=== PATIENT | female | born 1985 | race Caucasian/White ===

== ENCOUNTER 2021-08-28 13:02 | Emergency (ER) | payer OTHER ==
[2021-08-28 13:08] VITALS: BP 116/77; PULSE 88; RESP 16; TEMP 98.4
[2021-08-28] MEDS ORDERED: ONDANSETRON 4 MG/2 ML VIAL IVP STA (13:58)
[2021-08-28] MEDS ORDERED: SODIUM CHLORIDE 0.9% 1,000 ML IV STA (13:58)
[2021-08-28] MEDS ORDERED: KETOROLAC 15 MG/ML 1 ML VIAL IVP STA (13:58)
[2021-08-28 14:33] LABS: Basophils % (A) 1 %; Eosinophils # (A) 0.1 k/uL (0-0.7); Eosinophils % (A) 1 %; HCT 38.5 % (34.0-46.0); HGB 12.2 gm/dL (11.4-16.0); Lymphocytes # (A) 1.3 k/uL (1.0-4.8); Lymphocytes % (A) 23 %; MCH 28.2 pg (25.0-35.0); MCHC 31.8 g/dL (31.0-37.0); MCV 88.7 fL (80.0-100.0); Mean Platelet Volume 7.2; Monocytes # (A) 0.4 k/uL (0-1.0); Monocytes % (A) 7 %; Neutrophils # (A) 3.7 k/uL (1.3-7.7); Neutrophils % (A) 66 %; Platelet Count 200 k/uL (150-450); RBC 4.34 m/uL (3.80-5.40); RDW 14.1 % (11.5-15.5); WBC 5.5 k/uL (3.8-10.6)
[2021-08-28 14:37] LABS: Appearance,Urine Clear (Clear); Bilirubin,Urine Negative (Negative); Blood,Urine Negative (Negative); Color,Urine Light Yellow; Glucose,Urine (UA) Negative (Negative); Ketones,Urine Negative (Negative); Leukocyte Esterase,Urine Moderate (Negative); Mucus,Urine Rare /hpf; Nitrite,Urine Negative (Negative); PH, Urine 5.5 (5.0-8.0); Protein,Urine Negative (Negative); RBC,Urine 1 /hpf (0-5); Specific Gravity,Urine 1.013 (1.001-1.035); Squamous Epithelial Cell,Urine 2 /hpf (0-4); Urobilinogen,Urine <2.0 mg/dL (<2.0); WBC,Urine 3 /hpf (0-5)
[2021-08-28 14:49] LABS: ALT 13 U/L (4-34); AST 25 U/L (14-36); African American GFR (CKD) >90 (>60 ml/min/1.73 sqM); Albumin 3.9 g/dL (3.5-5.0); Alkaline Phosphatase 83 U/L (38-126); Anion Gap 8 mmol/L; Blood Urea Nitrogen 12 mg/dL (7-17); Calcium 9.1 mg/dL (8.4-10.2); Carbon Dioxide 25 mmol/L (22-30); Chloride 105 mmol/L (98-107); Glucose 80 mg/dL (74-99); Lipase 113 U/L (23-300); Non-African American GFR(CKD) >90 (>60 ml/min/1.73 sqM); Potassium 4.5 mmol/L (3.5-5.1); Sodium 138 mmol/L (137-145); Total Bilirubin 0.4 mg/dL (0.2-1.3); Total Protein 7.4 g/dL (6.3-8.2)
--- NOTE | 2021-08-28 14:55 | ED ---
General Adult HPI - General Chief complaint: Urogenital Stated complaint: Female Time Seen by Provider: 08/28/21 13:49 Source: patient Mode of arrival: ambulatory Limitations: no limitations - History of Present Illness Initial comments: 36 year-old female patient presents to the emergency department for evaluation of pelvic pain and vaginal bleeding. States that symptoms started yesterday. States she had her period two weeks ago. States she never has bleeding between periods. States that she has had constant pain to the lower abdomen that radiate s to the back. States it does wax and wane but never goes away. Denies any foul smelling discharge, burning, or itching. Patient states she does have pain in her abdomen and burning with urination. States she is in a monogamous relationship and has low concern for STI. Denies fever or chills. Denies history of abdominal surgery. Does have history of ovarian cyst but these symptoms are not consistent with her previous episodes. Last gynecological exam was 01/16. History of abnormal cervical cells r/t HPV several years ago, no further abnormal paps. Patient denies any recent rash, cough, shortness of breath, chest pain, diarrhea, constipation, back pain, numbness, tingling, dizziness, weakness, headache, visual changes, or any other complaints. - Related Data Previous Rx's Medication Instructions Recorded metroNIDAZOLE [Flagyl] 500 mg PO BID #14 tab 08/28/21 Allergies Allergy/AdvReac Type Severity Reaction Status Date / Time No Known Allergies Allergy Verified 08/28/21 13:04 Review of Systems ROS Statement: Those systems with pertinent positive or pertinent negative responses have been documented in the HPI. ROS Other: All systems not noted in ROS Statement are negative. Past Medical History Past Medical History: No Reported History History of Any Multi-Drug Resistant Organisms: None Reported Past Surgical History: Back Surgery Past Psychological History: Anxiety Smoking Status: Never smoker Past Alcohol Use History: Occasional Past Drug Use History: None Reported General Exam Limitations: no limitations General appearance: alert, in no apparent distress, other (This is a well- developed, well-nourished adult female patient in no acute distress. Vital signs upon presentation are temperature 98.4F, pulse 88, respirations 16, blood pressure 116/77, pulse ox 97% on room air.) Eye exam: Present: normal appearance, PERRL, EOMI. Absent: scleral icterus, conjunctival injection, periorbital swelling ENT exam: Present: normal exam, normal oropharynx, mucous membranes moist Respiratory exam: Present: normal lung sounds bilaterally. Absent: respiratory distress, wheezes, rales, rhonchi, stridor Cardiovascular Exam: Present: regular rate, normal rhythm, normal heart sounds. Absent: systolic murmur, diastolic murmur, rubs, gallop, clicks GI/Abdominal exam: Present: soft, tenderness (Suprapubic), normal bowel sounds. Absent: distended, guarding, rebound, rigid Neurological exam: Present: alert, oriented X3, CN II-XII intact Psychiatric exam: Present: normal affect, normal mood Skin exam: Present: warm, dry, intact, normal color. Absent: rash Course Vital Signs 08/28/21 13:04 Temperature 98.4 F Pulse Rate 88 Respiratory 16 Rate Blood Pressure 116/77 O2 Sat by Pulse 97 Oximetry Medical Decision Making - Medical Decision Making 36-year-old female patient presents to the emergency department today for evaluation of pelvic pain, dysuria, and midcycle bleeding. She has had tubal ligation no chance of . Physical examination did reveal suprapubic tenderness. No CVA tenderness. She is afebrile normal vital signs. Labs rev iewed and were unremarkable. Did perform pelvic examination which did reveal a thin grayish discharge. Cultures were obtained. She did test positive for Trichomonas. She was given IM Rocephin, dose of azithromycin, will be started on Flagyl for the next week. She is instructed to inform her partners and has been treated as well. No intercourse for 2 weeks. She is instructed to follow- up with her press operator automatic for further evaluation as soon as possible. Return parameters were discussed in detail. She verbalizes understanding and agrees with this plan. My attending is Dr. Gerber. - Lab Data Result diagrams: 08/28/21 14:12 08/28/21 14:12 Lab Results 08/28/21 08/28/21 08/28/21 Range/Units 14:12 14:12 14:12 WBC 5.5 (3.8-10.6) k/uL RBC 4.34 (3.80-5.40) m/uL Hgb 12.2 (11.4-16.0) gm/dL Hct 38.5 (34.0-46.0) % MCV 88.7 (80.0-100.0) fL MCH 28.2 (25.0-35.0) pg MCHC 31.8 (31.0-37.0) g/dL RDW 14.1 (11.5-15.5) % Plt Count 200 (150-450) k/uL MPV 7.2 Neutrophils % 66 % Lymphocytes % 23 % Monocytes % 7 % Eosinophils % 1 % Basophils % 1 % Neutrophils # 3.7 (1.3-7.7) k/uL Lymphocytes # 1.3 (1.0-4.8) k/uL Monocytes # 0.4 (0-1.0) k/uL Eosinophils # 0.1 (0-0.7) k/uL Basophils # 0.0 (0-0.2) k/uL Sodium (137-145) mmol/L Potassium (3.5-5.1) mmol/L Chloride (98-107) mmol/L Carbon Dioxide (22-30) mmol/L Anion Gap mmol/L BUN (7-17) mg/dL Creatinine (0.52-1.04) mg/dL Est GFR (CKD-EPI)AfAm (>60 ml/min/1.73 sqM) Est GFR (CKD-EPI)NonAf (>60 ml/min/1.73 sqM) Glucose (74-99) mg/dL Plasma Lactic Acid John (0.7-2.0) mmol/L Calcium (8.4-10.2) mg/dL Total Bilirubin (0.2-1.3) mg/dL AST (14-36) U/L ALT (4-34) U/L Alkaline Phosphatase (38-126) U/L Total Protein (6.3-8.2) g/dL Albumin (3.5-5.0) g/dL Lipase (23-300) U/L Urine Color Light Yellow Urine Appearance Clear (Clear) Urine pH 5.5 (5.0-8.0) Ur Specific [place] 1.013 (1.001-1.035) Urine Protein Negative (Negative) Urine Glucose (UA) Negative (Negative) Urine Ketones Negative (Negative) Urine Blood Negative (Negative) Urine Nitrite Negative (Negative) Urine Bilirubin Negative (Negative) Urine Urobilinogen <2.0 (<2.0) mg/dL Ur Leukocyte Esterase Moderate H (Negative) Urine RBC 1 (0-5) /hpf Urine WBC 3 (0-5) /hpf Ur Squamous Epith Cells 2 (0-4) /hpf Urine Mucus Rare H (None) /hpf Urine HCG, Qual Not Detected (Not Detectd) Trichomonas Ag (Rapid) (Negative) 08/28/21 08/28/21 08/28/21 Range/Units 14:12 14:12 15:36 WBC (3.8-10.6) k/uL RBC (3.80-5.40) m/uL Hgb (11.4-16.0) gm/dL Hct (34.0-46.0) % MCV (80.0-100.0) fL MCH (25.0-35.0) pg MCHC (31.0-37.0) g/dL RDW (11.5-15.5) % Plt Count (150-450) k/uL MPV Neutrophils % % Lymphocytes % % Monocytes % % Eosinophils % % Basophils % % Neutrophils # (1.3-7.7) k/uL Lymphocytes # (1.0-4.8) k/uL Monocytes # (0-1.0) k/uL Eosinophils # (0-0.7) k/uL Basophils # (0-0.2) k/uL Sodium 138 (137-145) mmol/L Potassium 4.5 (3.5-5.1) mmol/L Chloride 105 (98-107) mmol/L Carbon Dioxide 25 (22-30) mmol/L Anion Gap 8 mmol/L BUN 12 (7-17) mg/dL Creatinine 0.84 (0.52-1.04) mg/dL Est GFR (CKD-EPI)AfAm >90 (>60 ml/min/1.73 sqM) Est GFR (CKD-EPI)NonAf >90 (>60 ml/min/1.73 sqM) Glucose 80 (74-99) mg/dL Plasma Lactic Acid John 0.7 (0.7-2.0) mmol/L Calcium 9.1 (8.4-10.2) mg/dL Total Bilirubin 0.4 (0.2-1.3) mg/dL AST 25 (14-36) U/L ALT 13 (4-34) U/L Alkaline Phosphatase 83 (38-126) U/L Total Protein 7.4 (6.3-8.2) g/dL Albumin 3.9 (3.5-5.0) g/dL Lipase 113 (23-300) U/L Urine Color Urine Appearance (Clear) Urine pH (5.0-8.0) Ur Specific [place] (1.001-1.035) Urine Protein (Negative) Urine Glucose (UA) (Negative) Urine Ketones (Negative) Urine Blood (Negative) Urine Nitrite (Negative) Urine Bilirubin (Negative) Urine Urobilinogen (<2.0) mg/dL Ur Leukocyte Esterase (Negative) Urine RBC (0-5) /hpf Urine WBC (0-5) /hpf Ur Squamous Epith Cells (0-4) /hpf Urine Mucus (None) /hpf Urine HCG, Qual (Not Detectd) Trichomonas Ag (Rapid) Positive H (Negative) - Radiology Data Radiology results: report reviewed, image reviewed Ultrasound of the pelvis is obtained. Report is reviewed in its entirety. Impression by Dr. Gómez shows no adnexal mass or free fluid. No evidence of ovarian torsion. Disposition Clinical Impression: Infection due to trichomonas, Pelvic pain Disposition: HOME SELF-CARE Condition: Good Instructions (If sedation given, give patient instructions): Trichomoniasis (ED), Pelvic Pain in Women (ED) Additional Instructions: Complete antibiotic prescription in full. No sexual intercourse for 2 weeks. Your partner must be treated. Follow-up with her press operator automatic for further evaluation as needed. Return for any new, worsening, or concerning symptoms. Prescriptions: metroNIDAZOLE [Flagyl] 500 mg PO BID #14 tab Is patient prescribed a controlled substance at d/c from ED?: No Referrals: None,Stated [Primary Care Provider] - 1-2 days Time of Disposition: 16:10
--- NOTE | 2021-08-28 15:15 | US ---
EXAMINATION TYPE: US transvaginal DATE OF EXAM: 08/28/2021 COMPARISON: NONE CLINICAL HISTORY: Pelvic pain; mid-cycle bleeding. Generalized pelvic pain, light vaginal bleeding TECHNIQUE: Transvaginal (TV). Transvaginal sonographic images of the pelvis were acquired. Date of LMP: 08/10/2021 EXAM MEASUREMENTS: Uterus: 7.3 x 3.8 x 4.6 cm Endometrial Stripe: 0.7 cm Right Ovary: 3.1 x 2.3 x 2.0 cm Left Ovary: 2.9 x 2.4 x 2.5 cm 1. Uterus: Anteverted Heterogeneous with small calc within body of uterus and Nabothian cysts in c ervix 2. Endometrium: wnl 3. Right Ovary: wnl 4. Left Ovary: wnl Spectral, color and waveform doppler imaging shows good arterial and venous flow within the ovaries ; there is no evidence for ovarian torsion. 5. Bilateral Adnexa: wnl 6. Posterior cul-de-sac: wnl IMPRESSION: No adnexal mass or free fluid. No evidence of ovarian torsion.
[2021-08-28] MEDS ORDERED: cefTRIAXone 1,000 MG VIAL (IM USE) IM STA (16:05)
[2021-08-28] MEDS ORDERED: AZITHROMYCIN 500 MG TAB PO STA (16:05)
[2021-08-28] MEDS ORDERED: metroNIDAZOLE 500 MG TAB PO STA (16:05)
[2021-08-30 13:05] LABS: C. trachomatis,PCR Negative (Neg,Equiv); Chlamydia trachomatis Source Vagina; N. gonorrhoeae,PCR Negative (Neg,Equiv); Neisseria Source Vagina
== END 2021-08-28 16:30 | disposition home or self-care (01) ==
LOC: EC 13:02
DX: A59.8 Trichomoniasis of other sites (principal); F41.9 Anxiety disorder, unspecified; Z98.51 Tubal ligation status
CPT/HCPCS: 99284; 96374; 96375; 96361; 96372; 36415; 80053; 83605; 83690; 85025; 81001; 81025; 87808; 87491; 87591; 87070; 93975; 76830; J2405; J0696; J1885

== ENCOUNTER 2021-11-06 20:38 | Emergency (ER) | payer OTHER ==
[2021-11-06 21:09] VITALS: RESP 20
[2021-11-06] MEDS ORDERED: LIDOCAINE 1% INJ 10MG/ML (20 ML MDV) SQ ONE (22:19)
[2021-11-06] MEDS ORDERED: BACITRACIN OINT 1 EACH PACKET TOPICAL ONE (22:19)
--- NOTE | 2021-11-06 22:39 | XR ---
EXAMINATION TYPE: XR hand complete RT DATE OF EXAM: 11/06/2021 COMPARISON: NONE HISTORY: Laceration TECHNIQUE: 3 views FINDINGS: Metacarpals are intact. I see no fracture nor dislocation. The joint spaces are normal. IMPRESSION: Negative right hand exam. No fracture.
[2021-11-06] MEDS ORDERED: DIPH,PERTUS(ACELL)TETVAC-LF 0.5 ML VIAL IM ONE (23:13)
--- NOTE | 2021-11-06 23:17 | ED ---
General Adult HPI - General Chief complaint: Wound/Laceration Stated complaint: Hand injury Time Seen by Provider: 11/06/21 22:01 Source: patient, RN notes reviewed Mode of arrival: ambulatory Limitations: no limitations - History of Present Illness Initial comments: 35-year-old female presents to emergency department for evaluation of laceration to the right hand. Patient states injury occurred approximately 1 hour prior to arrival when she was using a clean kitchen knife to cut through fabric. Patient complains of mild discomfort, but denies any loss of sensation or range of motion. Patient states she attempted to clean the wound prior to arrival. Denies any further injury. Last Tdap unknown. - Related Data Home Medications Medication Instructions Recorded Confirmed DULoxetine HCL [Cymbalta] 30 mg PO DIRECTED 11/06/21 11/06/21 EPINEPHrine (Auto Inject) [Epipen] 0.3 mg IM ONCE PRN 11/06/21 11/06/21 Allergies Allergy/AdvReac Type Severity Reaction Status Date / Time Mushroom Allergy Anaphylaxis Verified 11/06/21 23:20 peanut Allergy Anaphylaxis Verified 11/06/21 23:20 gluten AdvReac Nausea & Verified 11/06/21 23:20 Vomiting & Diarrhea Review of Systems ROS Statement: Those systems with pertinent positive or pertinent negative responses have been documented in the HPI. ROS Other: All systems not noted in ROS Statement are negative. Past Medical History Past Medical History: No Reported History History of Any Multi-Drug Resistant Organisms: None Reported Past Surgical History: Back Surgery Past Psychological History: Anxiety Smoking Status: Never smoker Past Alcohol Use History: Occasional Past Drug Use History: None Reported General Exam Limitations: no limitations (Well-developed, well-nourished female in no acute distress. Initial temperature 98.5, pulse 60, respirations 20, blood pressure 130/77, pulse ox 98% on room air.) General appearance: alert, in no apparent distress Respiratory exam: Present: normal lung sounds bilaterally. Absent: respiratory distress, wheezes, rales, rhonchi, stridor Cardiovascular Exam: Present: regular rate, normal rhythm, normal heart sounds. Absent: systolic murmur, diastolic murmur, rubs, gallop, clicks GI/Abdominal exam: Present: soft, normal bowel sounds. Absent: distended, tend erness, guarding, rebound, rigid Right Hand Wrist exam: Present: normal inspection, full ROM, tenderness, laceration (2 cm laceration to the web spacing between the first and second digits on the right hand.). Absent: swelling Neuro motor exam: Present: thumb opposition intact, thumb IP flexion intact, thumb adduction intact, fingers 2-5 abduction intact Vascular: Present: normal capillary refill, radial pulse, ulnar pulse. Absent: vascular compromise, Pallo Neurological exam: Present: alert, oriented X3, CN II-XII intact Psychiatric exam: Present: normal affect, normal mood Skin exam: Present: warm, dry, intact, normal color. Absent: rash Course Vital Signs 11/06/21 11/06/21 21:07 23:55 Temperature 98.5 F 98.2 F Pulse Rate 68 62 Respiratory 20 20 Rate Blood Pressure 130/77 130/70 O2 Sat by Pulse 98 98 Oximetry Procedures - Laceration Laceration #1 Consent Obtained: verbal consent Indication: laceration Site: hand (Right) Size (cm): 2 Description: linear Depth: simple, single layer Anesthetic Used: lidocaine 1% Anesthesia Technique: local infiltration Amount (mls): 4 Pre-repair: wound explored, irrigated extensively Size of Sutures: 5-0 Number of Sutures: 3 Technique: simple, interrupted Patient Tolerated Procedure: well, no complications Additional Comments: Wound care reviewed with patient. Bacitracin dressing applied. Instructed to have sutures removed in 7-10 days. Medical Decision Making - Medical Decision Making 36-year-old female presents to the emergency department for evaluation of laceration to the right hand. Upon exam, patient is well-appearing and in no acute distress. 2 cm linear laceration noted to the web spacing between the first and second digits of the right hand. Sensation and range of motion intact distal to injury. X-ray of the right hand was obtained showing no concerning findings. Wound cleansed and anesthetized; 3 simple interrupted sutures were placed without complication. Bacitracin dressing was applied. Wound care was reviewed with patient. She is instructed to follow up with her PCP for wound recheck in the next 2 days. Sutures to be removed in 7-10 days. Return parameters were discussed in detail. Patient verbalizes understanding and agrees with this plan. This patient's care was discussed with my attending Dr. Paredes. - Radiology Data Radiology results: report reviewed, image reviewed X-ray of the right hand was obtained. Report was reviewed in its entirety. Impression per Dr. Pinto is negative right hand exam. No fracture. Disposition Clinical Impression: Laceration of right hand Disposition: HOME SELF-CARE Condition: Stable Instructions (If sedation given, give patient instructions): Care For Your Stitches (ED), Laceration (ED) Additional Instructions: May take Tylenol or Motrin as needed for pain. Keep wound clean and dry. Sutures to be removed in 7-10 days. This may be done here at the ER, at urgent care, or at PCP. Follow-up with her primary care provider for recheck. Turned to the emergency department with any new, worsening, or concerning symptoms. Is patient prescribed a controlled substance at d/c from ED?: No Referrals: None,Stated [Primary Care Provider] - 1-2 days Time of Disposition: 23:16
[2021-11-06 23:59] VITALS: BP 130/70; PULSE 62; TEMP 98.2
== END 2021-11-06 23:55 | disposition home or self-care (01) ==
LOC: EC 20:38
DX: S61.411A Laceration without foreign body of right hand, initial encounter (principal); F41.9 Anxiety disorder, unspecified; Z79.899 Other long term (current) drug therapy; W26.0XXA Contact with knife, initial encounter
CPT/HCPCS: 73130; 90715; 90471; 12001; 99283; J2001

== ENCOUNTER → 2022-04-27 | Outpatient (CLI) | payer OTHER ==
--- NOTE | 2022-04-27 10:18 | USB ---
Reason for Exam: Clinical finding. Technique: Method: Whole Breast Handheld. Findings: The whole breast of the left breast, the axilla of the left breast and the retroareolar of the left breast were scanned. Whole left breast ultrasound including evaluation of subareolar and axillary regions shows no worrisome solid or cystic mass or abnormal fluid collection on images saved. Overall Assessment: Negative, BI-RAD 1 Management: Clinical Management of the left breast. Managed patient's symptoms of pain on clinical basis. Return to routine follow-up at 42 years of age. Electronically signed and approved by: Alex Rivera M.D.
--- NOTE | 2022-04-27 22:58 | BD ---
EXAMINATION TYPE: Axial Bone Density DATE OF EXAM: 04/27/2022 COMPARISON: NONE CLINICAL HISTORY: 36 years year old Female. ICD-10 CODE: N64.4 MASTODYNIA, K90.0 CELIAC DISEASE : NO Height: 65.5 IN Weight: 181 LBS FRAX RISK QUESTIONS: History of Fracture in Adulthood: LT ANKLE AGE 27 Secondary Osteoporosis: 4. Malnutrition: YES CELIAC DISEASE RISK FACTORS HISTORY OF: Surgery to Spine: L-SPINE SURGERY AGE 35 Active: YES MEDICATIONS: Additional Medications: CYMBALTA, EXAM MEASUREMENTS: Bone mineral densitometry was performed using the [employer] System. L SPINE SURGERY AGE 35 Bone mineral density about the R hip (g/cm2): 0.826 Bone mineral density about the L hip (g/cm2): 0.806 T Score values are as follows: -----R Neck: -1.5 -----L Neck: -1.7 -----R Total: -1.2 -----L Total: -1.4 Bone mineral density BASELINE Bone mineral density about the R Wrist (g/cm2): 0.630 T Score values are as follows: -----Dist. R+U: -1.6 -----Prox. R+U: -0.2 -----Radius total: -0.7 Bone mineral density BASELINE FRAX%s: PT IS ONLY 36 IMPRESSION: Osteopenia (T Score between -2.5 and -1). There is slightly increased risk of fracture and the patient may be considered for treatment. Re-Screen 2-5 years. NOTE: T-SCORE=SD OF THE YOUNG ADULT MEAN.
== END | disposition home or self-care (01) ==
LOC: RADUSWWP 09:23
PROVIDERS: ATTEND Family Medicine
DX: M85.89 Other specified disorders of bone density and structure, multiple sites (principal); R92.8 Other abnormal and inconclusive findings on diagnostic imaging of breast
CPT/HCPCS: 77080

== ENCOUNTER → 2023-03-21 | Outpatient (CLI) | payer BC, OTHER ==
--- NOTE | 2023-03-22 05:42 | MR ---
EXAMINATION TYPE: MR shoulder LT wo con DATE OF EXAM: 03/21/2023 COMPARISON: Outside left shoulder x-ray March 09, 2023 HISTORY: Left shoulder pain, limited movement for 3 months. TECHNIQUE: Multiplanar, multisequence imaging of the left shoulder is performed without contrast. FINDINGS: Rotator Cuff: Distal supraspinatus and infraspinatus tendons are intact with some mild increased sign al and adjacent fluid along the bursal surface. Rotator cuff muscular bulk is preserved. Acromioclavicular Joint: Moderate to severe narrowing with mild capsular hypertrophy. Distal acromion morphology is unremarkable. Glenohumeral Joint: No significant effusion or spurring. Labrum: The labrum appears grossly intact given limitation of non-arthrogram study. Biceps Tendon: The long head of biceps is in normal location within bicipital groove. Bone marrow signal: No focal abnormal marrow signal is appreciated. Other: No additional significant abnormality is appreciated. IMPRESSION: 1. Mild tendinosis of the distal rotator cuff tendons. No significant rotator cuff or labral tear.
== END | disposition home or self-care (01) ==
LOC: RADMRIMAIN 20:15
PROVIDERS: ATTEND Orthopaedic Surgery
DX: M67.814 Other specified disorders of tendon, left shoulder (principal); M25.512 Pain in left shoulder

== ENCOUNTER 2023-04-21 15:33 | Emergency (ER) | payer BC, OTHER ==
--- NOTE | 2023-04-21 16:07 | ED ---
General Adult HPI - General Chief complaint: Abdominal Pain Stated complaint: pelvic pain Time Seen by Provider: 04/21/23 15:44 Source: patient, RN notes reviewed Mode of arrival: ambulatory Limitations: no limitations - History of Present Illness Initial comments: 37-year-old female presents emergency department chief complaint of suprapubic pain 4-5 days. She states she has a history of recurrent UTIs but does not typically get this pain with it. She states that she has urinary frequency and burning with urination. She admits to some nausea without vomiting. She denies fevers, chills. Denies diarrhea. Denies vaginal discharge, abnormal vaginal bleeding, itching. Patient states that she has one sexual partner and has no concerns for STDs. - Related Data Home Medications Medication Instructions Recorded Confirmed DULoxetine HCL [Cymbalta] 30 mg PO DIRECTED 11/06/21 11/06/21 EPINEPHrine (Auto Inject) [Epipen] 0.3 mg IM ONCE PRN 11/06/21 11/06/21 Allergies Allergy/AdvReac Type Severity Reaction Status Date / Time Mushroom Allergy Anaphylaxis Verified 04/21/23 15:38 peanut Allergy Anaphylaxis Verified 04/21/23 15:38 gluten AdvReac Nausea & Verified 04/21/23 15:38 Vomiting & Diarrhea Review of Systems ROS Statement: Those systems with pertinent positive or pertinent negative responses have been documented in the HPI. ROS Other: All systems not noted in ROS Statement are negative. Past Medical History Past Medical History: No Reported History History of Any Multi-Drug Resistant Organisms: None Reported Past Surgical History: Back Surgery Past Psychological History: Anxiety Smoking Status: Never smoker Past Alcohol Use History: Occasional Past Drug Use History: None Reported General Exam Limitations: no limitations General appearance: alert, in no apparent distress Head exam: Present: atraumatic, normocephalic, normal inspection Eye exam: Present: normal appearance, PERRL, EOMI. Absent: scleral icterus, conjunctival injection, periorbital swelling ENT exam: Present: normal exam, mucous membranes moist Neck exam: Present: normal inspection. Absent: tenderness, meningismus, lymphadenopathy Respiratory exam: Present: normal lung sounds bilaterally. Absent: respiratory distress, wheezes, rales, rhonchi, stridor Cardiovascular Exam: Present: regular rate, normal rhythm, normal heart sounds. Absent: systolic murmur, diastolic murmur, rubs, gallop, clicks GI/Abdominal exam: Present: soft, normal bowel sounds. Absent: distended, tenderness, guarding, rebound, rigid External exam: Present: normal external exam Speculum exam: Present: normal speculum exam By manual exam: Present: uterine tenderness. Absent: cervical motion tenderness, adnexal mass Extremities exam: Present: normal inspection, full ROM, normal capillary refill. Absent: tenderness, pedal edema, joint swelling, calf tenderness Back exam: Present: normal inspection Neurological exam: Present: alert, oriented X3 Psychiatric exam: Present: normal affect, normal mood Skin exam: Present: warm, dry, intact, normal color. Absent: rash Course Vital Signs 04/21/23 04/21/23 04/21/23 15:35 18:40 21:19 Temperature 97.9 F 97 F L Pulse Rate 92 68 73 Respiratory 16 16 18 Rate Blood Pressure 133/77 125/83 114/75 O2 Sat by Pulse 99 100 98 Oximetry Medical Decision Making - Medical Decision Making Was pt. sent in by a medical professional or institution (MARCELA Shah, CHEESE SPECIALIST, urgent care, hospital, or fci...) When possible be specific @ -No Did you speak to anyone other than the patient for history (EMS, parent, family, police, friend...)? What history was obtained from this source @ -No Did you review nursing and triage notes (agree or disagree)? Why? @ -I reviewed and agree with nursing and triage notes Were old charts reviewed (outside hosp., previous admission, EMS record, old EKG, old radiological studies, urgent care reports/EKG's, fci records)? Report findings @ -No old charts were reviewed Differential Diagnosis (chest pain, altered mental status, abdominal pain women, abdominal pain men, vaginal bleeding, weakness, fever, dyspnea, syncope, headache, dizziness, GI bleed, back pain, seizure, CVA, palpatations, mental health, musculoskeletal)? @ -Differential Abdominal Pain Women: Appendicitis, Cholecystitis, diverticulosis, ischemic bowel, pancreatitis, hepatitis, UTI, gastroenteritis, AAA, incarcerated hernia, bowel obstruction, constipation, inflammatory bowel, hepatitis, peptic ulcer disease, splenic infarction, perforated viscus, vulvitis, ovarian torsion, PID, kidney stone, placenta abruption, this is not meant to be an all-inclusive list EKG interpreted by me (3pts min.). @ -None X-rays interpreted by me (1pt min.). @ -None done CT interpreted by me (1pt min.). @ -None done U/S interpreted by me (1pt. min.). @ -Transvaginal ultrasound was obtained which showed possibility for adenomyosis or uterine fibroids What testing was considered but not performed or refused? (CT, X-rays, U/S, labs)? Why? @ -None What meds were considered but not given or refused? Why? @ -None Did you discuss the management of the patient with other professionals (professionals i.e. , PA, CHEESE SPECIALIST, lab, RT, psych nurse, social media manager, military lawyer, teacher, community relations officer, upper caser)? Give summary @ -No Was smoking cessation discussed for >3mins.? @ -No Was critical care preformed (if so, how long)? @ -No Were there social determinants of health that impacted care today? How? (Homelessness, low income, unemployed, alcoholism, drug addiction, tra nsportation, low edu. Level, literacy, decrease access to med. care, residential, rehab)? @ -No Was there de-escalation of care discussed even if they declined (Discuss DNR or withdrawal of care, Hospice)? DNR status @ -No What co-morbidities impacted this encounter? (DM, HTN, Smoking, COPD, CAD, Cancer, CVA, ARF, Chemo, Hep., AIDS, mental health diagnosis, sleep apnea, morbid obesity)? @ -None Was patient admitted / discharged? Hospital course, mention meds given and route, prescriptions, significant lab abnormalities, going to OR and other pertinent info. @ -Discharge. Patient presented to emergency department chief complaint of lower abdominal pain 5 days. Patient is well-appearing, afebrile. Transvaginal ultrasound was obtained which showed possibility for adenomyosis or fibroids. CBC and CMP were within normal limits, UA within normal limits. pelvic exam was performed which showed no vaginal discharge, patient declined swabs for STDs. Discussed with patient ththere is no acute findings and patient should follow-up with her primary care physician and trouble clerk. Patient discharged in stable condition. Case discussed my attending, Dr. Haynes ] Undiagnosed new problem with uncertain prognosis? @ -[N] rug Therapy requiring intensive monitoring for toxicity (Heparin, Nitro, Insulin, Cardizem)? @ -[N] ere any procedures done? @ -[N] iagnosis/symptom? @ -[Pelvic pain Acute, or Chronic, or Acute on Chronic? @ -Acute Uncomplicated (without systemic symptoms) or Complicated (systemic symptoms)? @ -uncomplicated ann effects of treatment? @ -[N] xacerbation, Progression, or Severe Exacerbation? @ -[N] oses a threat to life or bodily function? How? (Chest pain, USA, PR, pneumonia, PE, COPD, DKA, ARF, appy, cholecystitis, CVA, Diverticulitis, Homicidal, Suicidal, threat to staff... and all critical care pts) @ -[N] - Lab Data Result diagrams: 04/21/23 16:21 04/21/23 16:21 Lab Results 04/21/23 04/21/23 04/21/23 Range/Units 16:21 16:21 16:21 WBC 5.2 (3.8-10.6) k/uL RBC 4.29 (3.80-5.40) m/uL Hgb 12.7 (11.4-16.0) gm/dL Hct 38.8 (34.0-46.0) % MCV 90.3 (80.0-100.0) fL MCH 29.5 (25.0-35.0) pg MCHC 32.7 (31.0-37.0) g/dL RDW 13.3 (11.5-15.5) % Plt Count 181 (150-450) k/uL MPV 7.3 Neutrophils % 63 % Lymphocytes % 26 % Monocytes % 5 % Eosinophils % 2 % Basophils % 0 % Neutrophils # 3.2 (1.3-7.7) k/uL Lymphocytes # 1.4 (1.0-4.8) k/uL Monocytes # 0.3 (0-1.0) k/uL Eosinophils # 0.1 (0-0.7) k/uL Basophils # 0.0 (0-0.2) k/uL Sodium 137 (137-145) mmol/L Potassium 4.4 (3.5-5.1) mmol/L Chloride 103 (98-107) mmol/L Carbon Dioxide 29 (22-30) mmol/L Anion Gap 5 mmol/L BUN 11 (7-17) mg/dL Creatinine 0.63 (0.52-1.04) mg/dL Est GFR (CKD-EPI)AfAm >90 (>60 ml/min/1.73 sqM) Est GFR (CKD-EPI)NonAf >90 (>60 ml/min/1.73 sqM) Glucose 83 (74-99) mg/dL Calcium 8.7 (8.4-10.2) mg/dL Total Bilirubin 0.4 (0.2-1.3) mg/dL AST 24 (14-36) U/L ALT 17 (4-34) U/L Alkaline Phosphatase 75 (38-126) U/L Total Protein 7.3 (6.3-8.2) g/dL Albumin 3.9 (3.5-5.0) g/dL Lipase 108 (23-300) U/L Urine Color Yellow Urine Appearance Clear (Clear) Urine pH 5.5 (5.0-8.0) Ur Specific [place] 1.018 (1.001-1.035) Urine Protein Negative (Negative) Urine Glucose (UA) Negative (Negative) Urine Ketones Negative (Negative) Urine Blood Negative (Negative) Urine Nitrite Negative (Negative) Urine Bilirubin Negative (Negative) Urine Urobilinogen <2.0 (<2.0) mg/dL Ur Leukocyte Esterase Negative (Negative) Urine HCG, Qual (Not Detectd) 04/21/23 Range/Units 16:21 WBC (3.8-10.6) k/uL RBC (3.80-5.40) m/uL Hgb (11.4-16.0) gm/dL Hct (34.0-46.0) % MCV (80.0-100.0) fL MCH (25.0-35.0) pg MCHC (31.0-37.0) g/dL RDW (11.5-15.5) % Plt Count (150-450) k/uL MPV Neutrophils % % Lymphocytes % % Monocytes % % Eosinophils % % Basophils % % Neutrophils # (1.3-7.7) k/uL Lymphocytes # (1.0-4.8) k/uL Monocytes # (0-1.0) k/uL Eosinophils # (0-0.7) k/uL Basophils # (0-0.2) k/uL Sodium (137-145) mmol/L Potassium (3.5-5.1) mmol/L Chloride (98-107) mmol/L Carbon Dioxide (22-30) mmol/L Anion Gap mmol/L BUN (7-17) mg/dL Creatinine (0.52-1.04) mg/dL Est GFR (CKD-EPI)AfAm (>60 ml/min/1.73 sqM) Est GFR (CKD-EPI)NonAf (>60 ml/min/1.73 sqM) Glucose (74-99) mg/dL Calcium (8.4-10.2) mg/dL Total Bilirubin (0.2-1.3) mg/dL AST (14-36) U/L ALT (4-34) U/L Alkaline Phosphatase (38-126) U/L Total Protein (6.3-8.2) g/dL Albumin (3.5-5.0) g/dL Lipase (23-300) U/L Urine Color Urine Appearance (Clear) Urine pH (5.0-8.0) Ur Specific [place] (1.001-1.035) Urine Protein (Negative) Urine Glucose (UA) (Negative) Urine Ketones (Negative) Urine Blood (Negative) Urine Nitrite (Negative) Urine Bilirubin (Negative) Urine Urobilinogen (<2.0) mg/dL Ur Leukocyte Esterase (Negative) Urine HCG, Qual Not Detected (Not Detectd) Disposition Clinical Impression: Abdominal pain Disposition: HOME SELF-CARE Condition: Stable Additional Instructions: Alternate Tylenol and Motrin as needed for pain. Follow-up with your trouble clerk. Please return to the Emergency Department with any new or worsening symptoms. Is patient prescribed a controlled substance at d/c from ED?: No Referrals: Cary Kaur MD [Primary Care Provider] - 1-2 days Time of Disposition: 21:04
[2023-04-21] MEDS ORDERED: IBUPROFEN 600 MG TAB PO STA (16:25)
[2023-04-21 17:34] LABS: Basophils % (A) 0 %; Eosinophils # (A) 0.1 k/uL (0-0.7); Eosinophils % (A) 2 %; HCT 38.8 % (34.0-46.0); HGB 12.7 gm/dL (11.4-16.0); Lymphocytes # (A) 1.4 k/uL (1.0-4.8); Lymphocytes % (A) 26 %; MCH 29.5 pg (25.0-35.0); MCHC 32.7 g/dL (31.0-37.0); MCV 90.3 fL (80.0-100.0); Mean Platelet Volume 7.3; Monocytes # (A) 0.3 k/uL (0-1.0); Monocytes % (A) 5 %; Neutrophils # (A) 3.2 k/uL (1.3-7.7); Neutrophils % (A) 63 %; Platelet Count 181 k/uL (150-450); RBC 4.29 m/uL (3.80-5.40); RDW 13.3 % (11.5-15.5); WBC 5.2 k/uL (3.8-10.6)
[2023-04-21 17:35] LABS: Appearance,Urine Clear (Clear); Bilirubin,Urine Negative (Negative); Blood,Urine Negative (Negative); Color,Urine Yellow; Glucose,Urine (UA) Negative (Negative); Ketones,Urine Negative (Negative); Leukocyte Esterase,Urine Negative (Negative); Nitrite,Urine Negative (Negative); PH, Urine 5.5 (5.0-8.0); Protein,Urine Negative (Negative); Specific Gravity,Urine 1.018 (1.001-1.035); Urobilinogen,Urine <2.0 mg/dL (<2.0)
[2023-04-21 17:42] LABS: ALT 17 U/L (4-34); AST 24 U/L (14-36); African American GFR (CKD) >90 (>60 ml/min/1.73 sqM); Albumin 3.9 g/dL (3.5-5.0); Alkaline Phosphatase 75 U/L (38-126); Anion Gap 5 mmol/L; Blood Urea Nitrogen 11 mg/dL (7-17); Calcium 8.7 mg/dL (8.4-10.2); Carbon Dioxide 29 mmol/L (22-30); Chloride 103 mmol/L (98-107); Glucose 83 mg/dL (74-99); Lipase 108 U/L (23-300); Non-African American GFR(CKD) >90 (>60 ml/min/1.73 sqM); Potassium 4.4 mmol/L (3.5-5.1); Sodium 137 mmol/L (137-145); Total Bilirubin 0.4 mg/dL (0.2-1.3); Total Protein 7.3 g/dL (6.3-8.2)
[2023-04-21 18:46] VITALS: TEMP 97
--- NOTE | 2023-04-21 19:17 | US ---
EXAMINATION TYPE: US pelvic complete DATE OF EXAM: 04/21/2023 COMPARISON: US 2020 CLINICAL INDICATION: Female, 37 years old with history of pain; Pelvic pain x couple days TECHNIQUE: Transvaginal ER exam Date of LMP: Beginning of March EXAM MEASUREMENTS: Uterus: 5.4 x 3.8 x 4.0 cm Endometrial Stripe: 1.0 cm Right Ovary: 2.7 x 1.8 x 2.3 cm Left Ovary: 3.2 x 1.9 x 2.5 cm 1. Uterus: retroverted, heterogeneous appearance of the myometrium. Multiple nabothian cysts are not ed in the cervix. 2. Endometrium: appears wnl 3. Right Ovary: multiple follicles 4. Left Ovary: multiple follicles Spectral, color and waveform doppler imaging shows good arterial and venous flow within the ovaries ; there is no evidence for ovarian torsion. 5. Bilateral Adnexa: Within normal limit 6. Posterior cul-de-sac: Within normal limits IMPRESSION: 1. Heterogeneous appearance of the myometrium without focal lesion, possible underlying adenomyosis v ersus small uterine fibroids. 2. No evidence for ovarian torsion.
[2023-04-21 21:20] VITALS: BP 114/75; PULSE 73; RESP 18
== END 2023-04-21 21:20 | disposition home or self-care (01) ==
LOC: EC 15:33
DX: R10.2 Pelvic and perineal pain (principal); F41.9 Anxiety disorder, unspecified; Z91.010 Allergy to peanuts; Z91.018 Allergy to other foods; Z88.8 Allergy status to other drugs, medicaments and biological substances; Z79.899 Other long term (current) drug therapy
CPT/HCPCS: 36415; 76830; 80053; 81003; 81025; 83690; 85025; 93975; 99284

== ENCOUNTER → 2023-04-26 | Outpatient (CLI) | payer BC, OTHER ==
--- NOTE | 2023-04-27 08:18 | CT ---
EXAMINATION TYPE: CT sinus wo con CT DLP: 696 mGycm, Automated exposure control for dose reduction was used. DATE OF EXAM: 04/26/2023 4:30 PM COMPARISON: None. CLINICAL INDICATION:Female, 37 years old with history of J32.0 CHRONIC MAXILLARY SINUSITIS; , chronic maxillary sinusitis TECHNIQUE: Multiple thin axial images were obtained through the paranasal sinuses without the use of IV contrast. Additional coronal and sagittal reformatted images were submitted for evaluation. Contrast used: none Oral contrast used: none FINDINGS: Frontal sinuses: Normally developed and aerated. Frontal Recess: Clear Maxillary Sinuses: Normally developed. There is mucosal thickening/retention cysts occupying a majori ty of the right exercise. The left maxillary sinus is clear. Bilateral antrostomy changes are present . Maxillary Infundibula([facility]): Mildly stenosed bilaterally secondary to mucosal thickening.. Ethmoid sinuses: Normally developed and aerated. Ethmoidal notch: Protected and abutting the lateral lamina. Sphenoid sinuses: Normally developed and aerated. There is sellar sphenoid sinus pneumatization witho ut evidence of dehiscence. No dehiscence of carotid canal. No evidence of optic nerve dehiscence wit hin the sphenoid sinus. Sphenoethmoidal recesses: Clear. Nasal septum: Within normal limits.. Nasal Turbinates: Within normal limits. Mastoid air cells & middle ears: The air cells are clear. The middle ears are grossly unremarkable. Modified Soft tissues & Brain: Partially seen without gross abnormality. Globes are intact. Other: Cribriform plate demonstrates symmetric Keros classification type 1 cribriform plate. No evidence of bony dehiscence of skull base. Lamina papyracea is intact without evidence of remote orbital fracture or orbital prolapse into the e thmoid sinus. IMPRESSION: 1. Mild paranasal sinus disease most pronounced in the right maxillary sinus with antrostomy changes and near complete opacification of the right maxillary sinus likely secondary to mucosal thickening/r etention cyst.. 2. The ostiomeatal units are partially obstructed bilaterally, the frontonasal and sphenoethmoidal re cesses are clear.
== END | disposition home or self-care (01) ==
LOC: RADCTMAIN 16:11
PROVIDERS: ATTEND Otolaryngology
DX: J32.0 Chronic maxillary sinusitis (principal); J32.8 Other chronic sinusitis; J34.89 Other specified disorders of nose and nasal sinuses
CPT/HCPCS: 70486

== ENCOUNTER → 2023-11-05 | Outpatient (CLI) | payer BC, OTHER ==
[2023-11-05 15:58] LABS: Basophils # (A) 0.02 X 10*3/uL (0.00-0.10); Basophils % (A) 0.4 %; Eosinophils # (A) 0.11 X 10*3/uL (0.04-0.35); Eosinophils % (A) 2.2 %; HCT 39.8 % (37.2-46.3); HGB 12.7 g/dL (12.0-15.0); Lymphocytes # (A) 1.23 X 10*3/uL (0.90-5.00); MCHC 31.9 g/dL (32.0-37.0); MCV 93.9 FL (80.0-97.0); Mean Platelet Volume 10.5 FL (9.5-12.2); Monocytes # (A) 0.42 X 10*3/uL (0.20-1.00); Monocytes % (A) 8.5 %; NRBC Per 100 WBC 0 X 10*3/uL (0.00-0.01); Neutrophils # (A) 3.13 X 10*3/uL (1.80-7.70); Neutrophils % (A) 63.7 %; Platelet Count 195 X 10*3/uL (140-440); RBC 4.24 X 10*6/uL (4.10-5.20); RDW 13.2 % (11.5-14.5); WBC 4.92 X 10*3/uL (4.50-10.00)
[2023-11-05 16:13] LABS: Anion Gap 8.3 mmol/L (4.00-12.00); Carbon Dioxide 24.7 mmol/L (21.6-31.8); Potassium 4.3 mmol/L (3.5-5.5)
== END | disposition home or self-care (01) ==
LOC: LABPAT 09:46
PROVIDERS: ATTEND Orthopaedic Surgery
DX: Z01.812 Encounter for preprocedural laboratory examination (principal); M75.42 Impingement syndrome of left shoulder
CPT/HCPCS: 80051; 85025

== ENCOUNTER 2023-11-15 07:46 | Day surgery (SDC) | payer BC, OTHER ==
[2023-11-12 13:30] VITALS: BMI 32.3
--- NOTE | 2023-11-14 22:38 | HP ---
HISTORY AND PHYSICAL DATE OF SURGERY: 11/15/2023. HISTORY OF PRESENT ILLNESS: Josette Valadez is a 38-year-old patient seen with progressive left shoulder pain. Options for treatment were discussed with her. She elected to proceed with left shoulder arthroscopy. Consent was obtained. PAST MEDICAL HISTORY: Noncontributory. SURGICAL HISTORY: Back surgery. DAILY MEDICATIONS: 1. Motrin. 2. Tylenol. ALLERGIES: None. SOCIAL HISTORY: She denies tobacco use. PHYSICAL EVALUATION OF THE LEFT SHOULDER: Flexion is 150 degrees, abduction is 130 degrees. External rotation is 40 degrees with pain and weakness. Tenderness along the anterolateral acromion and rotator cuff insertion site. Impingement is positive at 90 degrees. Cross-body adduction sign is positive. Drop-arm sign is positive. Distal neurovascular exam is intact. IMAGING STUDIES: Left shoulder radiographs revealed a type 2 acromion. Cystic changes of the tuberosity and acromioclavicular joint osteoarthritis. MRI of left shoulder revealed abnormal signal through the rotator cuff tendon along with severe acromioclavicular joint osteoarthritis. IMPRESSION: 1. Left shoulder impingement with partial rotator cuff tear. 2. Left shoulder acromioclavicular joint osteoarthritis. PLAN: Left shoulder arthroscopy, subacromial decompression, Annalisa procedure, possible rotator cuff repair and debridement. MMODL / IJN: [id number] /
[~2023-11-15 07:46] MED LIST: DEXAMETHASONE SOD PHOSPHATE 4 MG/ML 1 ML VIAL IV ONE; HYDROmorphone 0.5 MG/0.5 ML SYRINGE IVP PRN; LACTATED RINGERS 1,000 ML IV SCH; LIDOCAINE 1% (10MG/ML) FOR IV START INTRADERMA PRN; ONDANSETRON 4 MG/2 ML VIAL IVP PRN; droPERidol 5 MG/2 ML VIAL IVP ONE
[2023-11-15] MEDS ORDERED: MIDAZOLAM 2 MG/2 ML VIAL IVP ONE (08:44)
[2023-11-15 09:14] VITALS: RESP 16
[2023-11-15] MEDS ORDERED: fentaNYL (PF) 50 MCG/ML 2 ML AMP ONE (09:19)
[2023-11-15] MEDS ORDERED: LIDOCAINE 1% INJ 10MG/ML (20 ML MDV) ONE (09:19)
[2023-11-15] MEDS ORDERED: DEXAMETHASONE SOD PHOSPHATE 4 MG/ML 1 ML VIAL ONE (09:19)
[2023-11-15] MEDS ORDERED: PROPOFOL 10 MG/ML 20 ML VIAL IV ONE (09:19)
[2023-11-15] MEDS ORDERED: ROPIVACAINE 5 MG/ML 30 ML VIAL ONE (09:19)
[2023-11-15] MEDS ORDERED: SUCCINYLCHOLINE CHLORIDE 200 MG/10 ML VIAL IV ONE (09:19)
--- NOTE | 2023-11-15 11:03 | P.OP ---
Date of Procedure: 11/15/23 Preoperative Diagnosis: Left shoulder impingement Postoperative Diagnosis: 1. Left shoulder labral tear 2. Left shoulder impingement Procedure(s) Performed: 1. Left shoulder arthroscopic labral repair 2. Left shoulder arthroscopic subacromial decompression Implants: 2Arthrex 1.8 knotless fiber tack soft tissue anchors Anesthesia: GETA, regional (Interscalene block) Surgeon: Zeyad Chang Bronc Breaker #1: Marquise Proctor Estimated Blood Loss (ml): 8 Pathology: none sent Condition: stable Disposition: PACU Indications for Procedure: 38-year-old patient was seen with progressive left shoulder pain. After having treatment options discussed, she elected to proceed with arthroscopy. Operative Findings: see description of procedure Description of Procedure: Patient underwent an interscalene block by department of anesthesia. The patient was then taken to the operative suite. The patient underwent a general anesthetic by the department of anesthesia. The patient was placed into a lateral position and secured. There was appropriate padding of the bony prominence. Left shoulder was then prepped and draped in normal sterile orthopedic fashion. We placed the extremity in 10 pounds of longitudinal traction. A posterior incision was now made for a posterior working portal site. The trocar and cannula were inserted into the glenohumeral joint. Arthroscopy was initiated. Spinal needle was now inserted anteriorly, to ascertain the anterior working portal site. An incision was now made in that area, a trocar was inserted followed by a probe. There was a substantial complex anterior labral tear that extended to the superior labrum. The biceps tendon was stable. The glenohumeral joint appeared without any sign chondromalacia. The posterior and inferior labrum were stable. I debrided the shredded area labrum. That did leave knee with very minimal labrum anteriorly by decided post with a repair and super stabilizer shoulder. I introduced a cannula through the anterior portal site. I abraded the anterior glenoid with a motorized round bur. I got down to some petechial bleeding bone. I now proceeded to introduce anchors for repair. With the assistance of Sabas MEDRANO introduced to Arthrex and less fiber tack soft tissue anchors. I shuttled the stitches through the minimal labral tissue I had remaining. I now cinched the tissue down to the anterior glenoid providing us some soft tissue bumper. I now clipped the residual sutures. I probed that labral repair and it was stable. At this point instruments were now removed from the glenohumeral joint.] Utilizing the posterior working portal site, the trocar and cannula were inserted into the subacromial space. Arthroscopy initiated. I made an incision 2 fingerbreadths lateral to the acromion. I introduced my trocar followed by my ArthroCare ablator. I now began ablating thick subacromial bursal tissue, which exposed the undersurface of the anterior acromion. There was diminished subacromial space. There was a very prominent anterior acromion. A motorized bur was introduced and a subacromial decompression was performed. I also excised some osteophytes off the inferior aspect of the distal clavicle. The AC joint was visualized and noted to be mildly arthritic, I did not think enough toward a Annalisa procedure. I turned my attention to the rotator cuff tendon. It was thoroughly probed and found to be stable with no evidence of any significant tearing. Instruments now removed from the portal sites. All portal sites were approximated with nylon suture. Sterile dressings were applied followed by a shoulder sling. Marquise MEDRANO assisted in this complex case. The patient was awakened, transferred to a bed, and taken to recovery in stable condition.
[2023-11-15] MEDS ORDERED: ONDANSETRON 4 MG/2 ML VIAL IVP ONE (11:10)
[2023-11-15 11:18] VITALS: TEMP 97.4
[2023-11-15 12:37] VITALS: BP 125/72; PULSE 84
--- NOTE | 2023-11-15 19:55 | P.ANPRN ---
Procedure Note - Anesthesia - Nerve Block Performed Left Interscalene Single Time Out Performed: Yes Date of Procedure: 11/15/23 Procedure Start Time: 08:43 Procedure Stop Time: 08:47 Location of Patient: PreOp Indication: Acute Post-Operative Pain, Requested by Surgeon Sedation Type: Sedate with meaningful contact maintained Preparation: Sterile Prep Position: Supine Needle Types: Pajunk Needle Gauge: 21 Ultrasound used to visualize needle placement: Yes Ultrasound used to observe medication spread: Yes Blood Aspirated: No Pain Paresthesia on Injection Noted: No Resistance on Injection: Normal Image Stored and Saved: Yes Events: Uneventful and Well Tolerated (ropi .5% 20cc plus dexamethasone 4mg)
== END 2023-11-15 12:55 | disposition home or self-care (01) ==
LOC: OR 07:46
PROVIDERS: ATTEND Orthopaedic Surgery
DX: S43.492A Other sprain of left shoulder joint, initial encounter (principal); M75.42 Impingement syndrome of left shoulder; F41.9 Anxiety disorder, unspecified; Z79.899 Other long term (current) drug therapy; Z98.890 Other specified postprocedural states; X58.XXXA Exposure to other specified factors, initial encounter
CPT/HCPCS: 29826; 64415; 81025; 29822; C1713 ×2; J2250; J0330; J1100; J0690; J2405; J2001; J3010; J2795; J2704; J1170

== ENCOUNTER → 2024-11-10 | Outpatient (CLI) | payer BC ==
--- NOTE | 2024-11-10 16:48 | US ---
EXAMINATION TYPE: US pelvis complete transvag DATE OF EXAM: 11/10/2024 COMPARISON: 04/21/2024. CLINICAL INDICATION: Female, 39 years old with history of K59.00 CONSTIPATION R10.2 PELV PAIN; Interm ittent pelvic pain x couple months TECHNIQUE: Transvaginal (TV) and Transabdominal (TA) . Transabdominal grayscale sonographic images of the pelvis were acquired. Transvaginal sonographic im ages were medically necessary to better assess the following anatomy: FINDINGS: Date of LMP: 1 month ago EXAM MEASUREMENTS: Uterus: 7.2 x 3.8 x 4.6 cm Endometrial Stripe: 0.9 cm Right Ovary: 2.8 x 1.8 x 1.6 cm Left Ovary: 3.5 x 2.1 x 2.7 cm 1. Uterus: heterogeneous 2. Endometrium: appears wnl 3. Right Ovary: wnl 4. Left Ovary: 1.5cm complex cystic area 5. Bilateral Adnexa: wnl 6. Posterior cul-de-sac: wnl IMPRESSION: 1. Endometrium within normal limits for thickness. 2. Left ovarian involuting hemorrhagic follicle. [facility], , 11/10/2024 4:46 PM
== END | disposition home or self-care (01) ==
LOC: RADUSWWP 15:34
PROVIDERS: ATTEND Family Medicine
DX: K59.00 Constipation, unspecified (principal); R10.2 Pelvic and perineal pain
CPT/HCPCS: 76830; 76856

== ENCOUNTER → 2025-03-30 | Outpatient (CLI) | payer BC ==
--- NOTE | 2025-03-30 16:51 | MR ---
EXAMINATION TYPE: MR pelvis wo/w con DATE OF EXAM: 03/30/2025 COMPARISON: Pelvic ultrasound 11/10/2024, transvaginal ultrasound 04/21/2023, 08/28/2021 CLINICAL INDICATION:Female, 39 years old with history of R10.2 PELVIC AND PERINEAL PAIN; [facility], TECHNIQUE: Triplane multisequence imaging was performed of the pelvis. Then the patient was given c ontrast/gadolinium, 8.5 cc of Gadobutrol and multiple post contrast sequences where obtained. FINDINGS: Reproductive: Vagina: Unremarkable. Uterus: The uterus is anteverted in position. Uterus measures 6.5 x 4.5 x 4.7 cm with arcuate morphol ogy. The endometrium and junctional zone are within normal limits. Multiple nabothian cysts are seen . Ovaries: Follicular changes are noted to the ovaries. Bladder: Underdistended but grossly unremarkable. Bowel: Unremarkable as visualized. Peritoneum: No free fluid. No evidence of adenopathy. Vasculature: Unremarkable. Abdominal wall/soft tissues: Unremarkable. Musculoskeletal: Extensive fixation hardware involving the visualized lumbar spine. IMPRESSION: No evidence of suspicious pelvic mass. [facility], , 03/30/2025 4:49 PM
== END | disposition home or self-care (01) ==
LOC: RADMRIMAIN 15:22
PROVIDERS: ATTEND Family Medicine
DX: R10.2 Pelvic and perineal pain (principal)
CPT/HCPCS: 72197; A9585